=== PATIENT | male | born 1985 | race Caucasian/White ===

== ENCOUNTER 2022-01-25 15:11 | Emergency (ER) | payer MEDICAID ==
[~2022-01-25] VITALS: Ht 177.8 cm; Wt 79.4 kg
[2022-01-25 15:16] VITALS: BP 126/75
--- NOTE | 2022-01-25 15:16 | NUR ---
Patient ambulatd to bed 12 with steady/even gait.
--- NOTE | 2022-01-25 15:19 | NUR ---
Note undone in EDM - 01/25/22 at 1522 by [facility] 36 y/o M BIB self from home c/o laceration to R 2nd digit 5 minutes prior to arrival. Patient A&Ox4, ambulatory, states using Ye knife to cut a hole and accidentally slide cut finger. 05/17, burning/constant, non-radiating pain. Pt with 2.5cm laceration to R 2nd digit. Bleeding controlled with 4x4 gauze. Unknown estimated blood loss. Denies medications prior to arrival. Last tetanus unknown. Bed locked in lowest positoin, side rails x 1. PMH/Sx/Meds: Denies NKDA
--- NOTE | 2022-01-25 15:19 | NUR ---
36 y/o M BIB self from home c/o laceration to R 2nd digit 5 minutes prior to arrival. Patient A&Ox4, ambulatory, states using Ye knife to cut a hole and accidentally cut finger. 9/10, burning/constant, non-radiating pain. Pt with 2.5cm laceration to R 2nd digit. Bleeding controlled with 4x4 gauze. Unknown estimated blood loss. Denies medications prior to arrival. Last tetanus unknown. Bed locked in lowest positoin, side rails x 1. PMH/Sx/Meds: Denies NKDA
[2022-01-25] MEDS ORDERED: KETOROLAC 30 MG/ML VIAL IM ONE (15:45)
[2022-01-25] MEDS ORDERED: LIDOCAINE MPF 1% 10 MG/ML VIAL INJ ONE (15:45)
--- NOTE | 2022-01-25 17:10 | NUR ---
JOSETTE Lara at bedside for suture procedure
[2022-01-25] MEDS ORDERED: BACITRACIN OINT 500 UNITS/GM PKT TP ONE (17:25)
[2022-01-25] MEDS ORDERED: BACI1PAC6 TP (17:26)
[2022-01-25] MEDS ORDERED: IBUP-2213 PO (17:26)
[2022-01-25 17:35] VITALS: BP 118/72
--- NOTE | 2022-01-25 17:40 | NUR ---
Patient discharged with v/s stable. Written and verbal after care instructions given and explained. Patient alert, oriented and verbalized understanding of instructions. Ambulatory with steady gait. All questions addressed prior to discharge. ID band removed. Patient advised to follow up with PMD. Rx of Bacitracin, Ibuprofen given. Patient educated on indication of medication including possible reaction and side effects. Opportunity to ask questions provided and answered.
== END 2022-01-25 17:40 | disposition home or self-care (01) ==
LOC: MED 15:11
DX: S61.210A Laceration without foreign body of right index finger without damage to nail, initial encounter (principal); Z79.899 Other long term (current) drug therapy; W26.0XXA Contact with knife, initial encounter; Y93.89 Activity, other specified; Y92.89 Other specified places as the place of occurrence of the external cause; Y99.8 Other external cause status
CPT/HCPCS: 12001; 90471; 90715; 96372; 99284; J1885; J2001

== ENCOUNTER 2022-01-28 12:43 | Emergency (ER) | payer MEDICAID ==
[~2022-01-28] VITALS: Ht 177.8 cm; Wt 79.4 kg
[~2022-01-28 12:43] MED LIST: BACI1PAC6 TP; IBUP-2213 PO
--- NOTE | 2022-01-28 12:50 | NUR ---
PT AMBULATED TO ER BED 3 WITH A STEADY GAIT FOR BEDSIDE TRIAGE.
[2022-01-28 12:52] VITALS: BP 122/86
--- NOTE | 2022-01-28 12:55 | NUR ---
36 Y/O MALE HERE FOR WOUND CHECK TO RIGHT INDEX FINGER S/P SUTURES WERE PLACED X2DAYS. DENIES PAIN. DENIES FEVER/CHILLS. DENIES N/V. DENIES PMH NKA
[2022-01-28] MEDS: BACITRACIN OINT 500 UNITS/GM PKT TP ONE (13:42)
--- NOTE | 2022-01-28 13:48 | NUR ---
APPLIED DRESSING WITH NON-ADHERENT PAD WRAPPED IN ROLLER GAUZE TO RIGHT INDEX FINGER. CMS WAS CHECKED BEFORE AND AFTER. PT DID NOT HAVE FURTHER QUESTIONS. ERMD NOTIFIED.
--- NOTE | 2022-01-28 13:53 | NUR ---
Patient discharged with v/s stable. Written and verbal after care instructions given and explained. Patient verbalized understanding. Ambulatory with steady gait. All questions addressed prior to discharge. Advised to follow up with PMD.
--- NOTE | 2022-01-28 13:54 | NUR ---
Chart checked and completed. The patient's care was reviewed and supervised by Aixa Berry RN.
== END 2022-01-28 13:53 | disposition home or self-care (01) ==
LOC: MED 12:43
DX: Z48.01 Encounter for change or removal of surgical wound dressing (principal); Z79.1 Long term (current) use of non-steroidal anti-inflammatories (NSAID); Z79.2 Long term (current) use of antibiotics
CPT/HCPCS: 99282

== ENCOUNTER 2022-04-05 15:21 | Emergency (ER) | payer MEDICAID ==
[~2022-04-05] VITALS: Ht 177.8 cm; Wt 76.3 kg
[2022-04-05 15:30] VITALS: BP 121/77
--- NOTE | 2022-04-05 15:35 | NUR ---
PT PUT TO WAIT IN LOBBY
[2022-04-05] MEDS ORDERED: IBUP-2213 PO (17:20)
[2022-04-05] MEDS ORDERED: CEPH500C16 PO (17:20)
[2022-04-05] MEDS ORDERED: SULF-59 PO (17:20)
[2022-04-05 17:33] VITALS: BP 112/75
--- NOTE | 2022-04-05 17:33 | NUR ---
Patient discharged with v/s stable. Written and verbal after care instructions given and explained. Patient alert, oriented and verbalized understanding of instructions. Ambulatory with steady gait. All questions addressed prior to discharge. ID band removed. Patient advised to follow up with PMD. Rx of KEFLEX, IBUPROFEN, AND BACTRIM DS given. Patient educated on indication of medication including possible reaction and side effects. Opportunity to ask questions provided and answered.
== END 2022-04-05 17:33 | disposition home or self-care (01) ==
LOC: MED 15:21
DX: L03.112 Cellulitis of left axilla (principal); R03.0 Elevated blood-pressure reading, without diagnosis of hypertension; F17.200 Nicotine dependence, unspecified, uncomplicated; Z72.89 Other problems related to lifestyle
CPT/HCPCS: 99283

== ENCOUNTER 2022-11-09 18:25 | Emergency (ER) | payer MEDICAID ==
[~2022-11-09] VITALS: Ht 177.8 cm; Wt 77.6 kg
[~2022-11-09 18:25] MED LIST changes: +BACI-416 TP; -BACI1PAC6 TP; +CEPH500C16 PO; +SULF-59 PO
[2022-11-09 19:49] VITALS: BP 124/60
--- NOTE | 2022-11-09 21:31 | NUR ---
PT TAKEN TO ER CHAIR
--- NOTE | 2022-11-09 21:32 | NUR ---
Dr. Cervantes examining patient.
[2022-11-09] MEDS ORDERED: ACET-10509 PO (21:44)
[2022-11-09] MEDS ORDERED: DICL20GE TP (21:44)
[2022-11-09] MEDS ORDERED: NAPR-54 PO (21:44)
[2022-11-09] MEDS ORDERED: LID5T TP (21:44)
[2022-11-09] MEDS ORDERED: BACI-416 TP (21:45)
[2022-11-09 21:59] VITALS: BP 120/60
--- NOTE | 2022-11-09 21:59 | NUR ---
Patient discharged with v/s stable. Written and verbal after care instructions given and explained. Patient alert, oriented and verbalized understanding of instructions. Ambulatory with steady gait. All questions addressed prior to discharge. ID band removed. Patient advised to follow up with PMD. Rx of Bacitracin, Naproxen, Lidocaine patch, Voltaren and Tylenol given. Patient educated on indication of medication including possible reaction and side effects. Opportunity to ask questions provided and answered.
== END 2022-11-09 21:59 | disposition home or self-care (01) ==
LOC: MED 18:25
DX: S70.11XA Contusion of right thigh, initial encounter (principal); V13.4XXA Pedal cycle driver injured in collision with car, pick-up truck or van in traffic accident, initial encounter; Y93.89 Activity, other specified; Y92.89 Other specified places as the place of occurrence of the external cause; Y99.8 Other external cause status
CPT/HCPCS: 99283

== ENCOUNTER 2023-08-22 14:05 | Emergency (ER) | payer MEDICAID ==
[~2023-08-22] VITALS: Ht 177.8 cm; Wt 73.0 kg
[~2023-08-22 14:05] MED LIST changes: +ACET-10509 PO; -BACI-416 TP; +BACI-418 TP; +DICL20GE TP; +LID5T TP; +NAPR-54 PO
[2023-08-22 14:24] VITALS: BP 153/74; PULSE 99; RESP 20; TEMP 99.9; O2SAT 100
[2023-08-22] MEDS ORDERED: IBUPROFEN 600 MG TAB PO ONE (14:40)
[2023-08-22] MEDS ORDERED: SULF-59 PO (14:43)
[2023-08-22] MEDS ORDERED: IBUP-2213 PO (14:43)
[2023-08-22] MEDS ORDERED: BACTO TP (14:43)
[2023-08-22 15:19] VITALS: BP 153/74; PULSE 99; RESP 20; TEMP 99.9; O2SAT 100
== END 2023-08-22 15:20 | disposition home or self-care (01) ==
LOC: MED 14:05
DX: L01.00 Impetigo, unspecified (principal); Z79.899 Other long term (current) drug therapy
CPT/HCPCS: 99283

== ENCOUNTER 2024-04-07 02:11 | Emergency (ER) | payer MEDICAID ==
[~2024-04-07] VITALS: Ht 177.8 cm; Wt 72.6 kg
[~2024-04-07 02:11] MED LIST changes: +BACTO TP; +NAPR-337 PO; -NAPR-54 PO
[2024-04-07 02:12] VITALS: BP 137/77; PULSE 121; RESP 18; TEMP 96.5; O2SAT 100
[2024-04-07 04:10] VITALS: BP 137/77; PULSE 121; RESP 18; TEMP 96.5
[2024-04-07] MEDS ORDERED: NAPR-337 PO (04:17)
[2024-04-07 05:00] VITALS: O2SAT 100
== END 2024-04-07 05:02 | disposition home or self-care (01) ==
LOC: MED 02:11
DX: S62.326A Displaced fracture of shaft of fifth metacarpal bone, right hand, initial encounter for closed fracture (principal); Z79.899 Other long term (current) drug therapy; W22.8XXA Striking against or struck by other objects, initial encounter; Y92.89 Other specified places as the place of occurrence of the external cause; Y93.89 Activity, other specified; Y99.8 Other external cause status
CPT/HCPCS: 29125; 73130; 99283; Q0092